=== PATIENT | female | born 1965 | race Caucasian/White ===

== ENCOUNTER 2017-10-23 11:17 | Day surgery (SDC) | payer BC ==
[2017-10-23 08:36] LABS: Absolute Lymphocytes (CBC) 1.7 K/uL (0.7-4.9); Absolute Monocytes 0.3 K/uL (0.1-1.3); Absolute Neutrophil 2.7 K/uL (1.8-8.0); Basophils % 1.1 % (0-1.3); Eosinophils % 8.5 % (0-4.4); Hematocrit 38.5 % (36.0-45.0); Lymphocytes % 31.5 % (15.3-44.8); MCH 30.1 pg (27.0-35.0); MPV 8.3 fL (7.6-11.3); Monocytes % 6.6 % (3.3-12.3); RBC Red Blood Cell Count 4.23 M/uL (3.86-4.86)
[2017-10-23 09:03] LABS: Potassium 4.6 mEq/L (3.6-5.0)
[2017-10-23 09:09] LABS: Albumin 4.5 g/dL (3.2-5.5); Bilirubin Direct 0.1 mg/dL (0-0.2); Bilirubin Total 0.7 mg/dL (0.3-1.2); Protein, Total 7.1 g/dL (6.0-8.3)
--- NOTE | 2017-10-23 09:19 | RAD REPORT ---
EXAM DESCRIPTION: RADOP - Outpt Chest Pa/Lat (2 Views) - 10/23/2017 8:32 am CLINICAL HISTORY: Preop chest, pending cholecystectomy COMPARISON: March 2012 TECHNIQUE: PA and lateral views of the chest were obtained. FINDINGS: The lungs are clear. Heart size is normal and central vasculature is within normal limits . No pleural effusion or pneumothorax seen. No acute bony finding noted. No acute aortic finding. No significant changes from the comparison study. IMPRESSION: No acute cardiopulmonary process.
[2017-10-23] MEDS ORDERED: Ringers Lactate 1,000 ML IV ONE ×2 (12:04→14:44)
[2017-10-23] MEDS ORDERED: CEFOXITIN/SWI 1gm 1 GM/10 ML SYR ONE (12:04)
[2017-10-23] MEDS ORDERED: PROPOFOL 200 MG/20 ML VIAL IV ONE (13:19)
[2017-10-23] MEDS ORDERED: MIDAZOLAM HCL 2 MG/2 ML INJ ONE ×2 (13:20→15:05)
[2017-10-23] MEDS ORDERED: ROCURONIUM 50 MG/5 ML VIAL IV ONE (13:20)
[2017-10-23] MEDS ORDERED: LIDOCAINE 1% MPF 5 ML VIAL ONE (13:20)
[2017-10-23] MEDS ORDERED: FENTANYL CITR 100 MCG/2 ML ONE ×2 (13:20→13:56)
--- NOTE | 2017-10-23 13:59 | P.BOP ---
Preoperative diagnosis: acute cholecystitis, symptomatic cholelithiasis, s/p MRCP Postoperative diagnosis: same Primary procedure: Laparoscopic cholecystectomy Estimated blood loss: <5cc Specimen: gb Findings: as above Anesthesia: General Complications: None Transferred to: Recovery Room Condition: Good
[2017-10-23] MEDS ORDERED: KETOROLAC 30 MG/ML INJ ONE (14:10)
[2017-10-23] MEDS ORDERED: GLYCOPYRROLATE 0.2 MG/ML SYR ONE ×2 (14:10→14:17)
[2017-10-23] MEDS ORDERED: ONDANSETRON 4 MG/2 ML VIAL ONE ×3 (14:10→15:44)
[2017-10-23] MEDS ORDERED: NEOSTIGMINE 1 MG/ML -5 ML SYRINGE ONE (14:13)
[2017-10-23] MEDS: MEPERIDINE HCL 50 MG/ML AMP ONE ×4 (14:18→14:40)
[2017-10-23] MEDS ORDERED: CODEINE 30MG/APAP 300MG TAB ONE (16:04)
--- NOTE | 2017-11-07 23:55 | OP ---
Date of Procedure: 10/23/2017 Surgeon: Wilfred Fuller MD Preoperative Diagnoses: Acute cholecystitis, symptomatic cholelithiasis, history of liver enzymes el evation with status post magnetic resonance cholangiopancreatography. Postoperative Diagnoses: Acute cholecystitis, symptomatic cholelithiasis, history of liver enzymes e levation with status post magnetic resonance cholangiopancreatography. Procedure: Laparoscopic cholecystectomy. Estimated Blood Loss: Less than 10 cc. Specimen: Gallbladder. Anesthesia: General plus local. Finding: As above. Indications: This is the case of a female, who came to us with the above diagnosis. Fully explained the benefits, alternatives, and risks of laparoscopic, possible open cholecystectomy which include b ut are not limited to infection, bleeding, damage to adjacent structures, anesthesia complication, ch oledocholithiasis, bile leak, pancreatitis, PA, and even . She also understands this may not re lieve any symptoms. She might need more than one surgical intervention. She understood. Signed the consent. The patient had an MRCP this morning showing the common bile duct with no stones as per radiologist. Description Of Procedure: The patient was brought to the operating room and placed in supine positio n. Anesthesia was done without complication. Abdominal area was prepped and draped in a sterile fas hion. Marcaine 0.5% injected for local anesthetic, followed by sharp incision of skin in the infraum bilical region. Incision was carried down to fascia, which was opened under direct vision. Peritone um was encountered and opened under direct vision. Vicryl #1 placed inside the fascia. Mayela troca r was carefully introduced. Pneumoperitoneum was obtained. I placed 3 more trocars, 5 mm each one o f them, 1 epigastric area 2 in the right upper quadrant using same technique, which consisted of loca l anesthetic, sharp incision of the skin, and introduction of the trocars under direct vision. This allowed me to put a grasper in the fundus of the gallbladder, another grasper in the infundibulum, an d retract the gallbladder in the inferolateral fashion exposing the triangle of Calot. The cystic du ct and cystic artery were clearly isolated free circumferentially and a connection between those and the gallbladder was clearly identified. I proceeded to ligate those by using at least 3 clips proxim al, 1 clip distal, ligation in the middle. Same was done with the cystic artery. No bile leak. No bleeding. The gallbladder was removed from liver using Bovie electric cauterizer and removed from ab dominal cavity using EndoCatch through the umbilical incision. The area was inspected once again. N o bile leak. No bleeding. Gallbladder fossa was intact with no bleeding. At that moment, I proceed ed to remove the trocars under direct vision. Deflated the pneumoperitoneum, closed the fascia with #1 Vicryl, irrigated subcutaneous tissue and closed that with 3-0 chromic and skin approximated. Spo nge count and instrument counts were correct. The patient tolerated the procedure well. The patient was sent to recovery in stable condition. DISCHARGE SUMMARY Diagnosis: Acute cholecystitis and symptomatic cholelithiasis. Disposition: Home. Activity: As tolerated. No heavy lifting. Followup: Follow up in my office in 1 week. Call for appointment at [phone]. Keep area dry for 48 hours, then may shower. Keep Steri-Strips intact. SRINIVAS/MEE Voice ID: [id number] Report ID: [id number]
== END 2017-10-23 16:15 | disposition home or self-care (01) ==
LOC: OR 11:17
PROVIDERS: ATTEND Surgery
PROC: 0FT44ZZ Resection of Gallbladder, Percutaneous Endoscopic Approach (ICD-10-PCS; principal; 2017-10-23 12:30)
DX: K80.12 Calculus of gallbladder with acute and chronic cholecystitis without obstruction (principal); K21.9 Gastro-esophageal reflux disease without esophagitis; E07.9 Disorder of thyroid, unspecified; Z98.890 Other specified postprocedural states; Z90.710 Acquired absence of both cervix and uterus; Z98.84 Bariatric surgery status; Z82.49 Family history of ischemic heart disease and other diseases of the circulatory system
CPT/HCPCS: 36415; 71046; 80048; 80076; 82150; 83690; 85025; 88304; J2175; J2250; J2405; J2710; J3010